=== PATIENT | female | born 1995 | race Hispanic/Latino ===

== ENCOUNTER 2016-10-23 13:47 | Emergency (ER) | payer OTHER ==
[~2016-10-23] VITALS: Ht 154.9 cm; Wt 77.0 kg
[~2016-10-23 13:47] MED LIST: AMOXICILLIN500 MG OR; AMOXICILLIN500 MG PO; CEPHALEXIN250 MG/5 M OR; NO HOME MEDS; ONDANSETRON4 MG PO; PHENERGAN25 MG/TAB PO; PRE-NATAL PO; PRENATABS RX PO; PROCARDIA10 MG PO; TRIMOX500 MG PO; ULTRAM50 M1 PO
[2016-10-23] MEDS ORDERED: MOTRIN400 MG PO (16:19)
[2016-10-23] MEDS ORDERED: FLEXERIL5 M1 PO (16:19)
[2016-10-23 16:26] VITALS: BP 110/67
== END 2016-10-23 16:26 | disposition home or self-care (01) | DRG 552 ==
LOC: ED 13:47
DX: M54.5 Low back pain (principal); W01.190A Fall on same level from slipping, tripping and stumbling with subsequent striking against furniture, initial encounter; Y92.009 Unspecified place in unspecified non-institutional (private) residence as the place of occurrence of the external cause

== ENCOUNTER 2017-03-22 07:43 | Emergency (ER) | payer OTHER ==
[~2017-03-22] VITALS: Ht 154.9 cm; Wt 75.0 kg
[~2017-03-22 07:43] MED LIST changes: +FLEXERIL5 M1 PO; +MOTRIN400 MG PO
[2017-03-22 08:38] LABS: IMMATURE GRANULOCYTES 0.5 % (0.0-1.0); MEAN CELL VOLUME 69.8 fL CALC (80.0-100.0); MEAN CORPUSCULAR HGB 21.1 pG CALC (26.0-32.0); MEAN CORPUSCULAR HGB CONC 30.3 g/L CALC (32.0-36.0); NEUT# 5.95 thou/uL (2.00-7.15); RED BLOOD COUNT 4.73 mill/uL (4.20-5.60); RED CELL DISTRI WIDTH 16.9 % (11.5-15.5)
[2017-03-22 08:42] LABS: URINE BILIRUBIN - DIPSTICK NEGATIVE (NEGATIVE); URINE BLOOD DIPSTICK LARGE (NEGATIVE); URINE COLOR YELLOW; URINE GLUCOSE - DIPSTICK NEGATIVE (NEGATIVE); URINE KETONE NEGATIVE (NEGATIVE); URINE LEUK ESTERASE NEGATIVE (NEGATIVE); URINE PH 6.5 (4.5-8.0); URINE PROTEIN - DIPSTICK NEGATIVE (NEG-TRACE); URINE UROBILINOGEN - DIPSTICK 0.2 E.U./dL (0.2)
[2017-03-22 08:46] LABS: URINE CLARITY CLEAR; URINE NITRITE - DIPSTICK NEGATIVE (Negative)
[2017-03-22 08:49] LABS: URINE RENAL EPITHELIAL CELLS RARE hpf; URINE WBC 0-2 WBC/hpf (0-5)
[2017-03-22 08:53] LABS: ALBUMIN 4.5 g/dL (3.2-5.0); ALKALINE PHOSPHATASE 143 u/l (38-126); AMYLASE 33 u/l (30-110); ANION GAP 19 (6-22 (CALC)); BILIRUBIN, TOTAL 0.2 mg/dL (0.0-1.4); BUN 11 mg/dL (7-17); BUN/CREATININE RATIO 15 (12-20 (CALC)); CARBON DIOXIDE 22 mmol/l (22-30); CHLORIDE 107 mmol/l (95-108); CREATININE 0.7 mg/dL (0.5-1.0); GFR > 60 ML/MIN (>=60 (CALC)); GFR FOR AFR.AMER. > 60 ML/MIN (>=60 (CALC)); LIPASE 55 u/l (23-300); POTASSIUM 4.2 mmol/l (3.5-5.1); SGOT/AST 19 u/l (14-36); SGPT/ALT 26 u/l (9-52); SODIUM 143 mmol/l (137-146); TOTAL PROTEIN 7.9 g/dL (6.3-8.2)
[2017-03-22] MEDS ORDERED: LORTAB 5/3255 MG PO (10:27)
[2017-03-22] MEDS ORDERED: ZOFRAN ODT4 MG PO (10:27)
[2017-03-22 10:58] VITALS: BP 128/60
== END 2017-03-22 10:58 | disposition home or self-care (01) | DRG 446 ==
LOC: ED 07:43
PROVIDERS: Emergency Medicine
DX: K80.70 Calculus of gallbladder and bile duct without cholecystitis without obstruction (principal); R10.11 Right upper quadrant pain; R10.13 Epigastric pain; R11.0 Nausea; R19.7 Diarrhea, unspecified

== ENCOUNTER 2017-06-14 09:29 | Emergency (ER) | payer OTHER ==
[~2017-06-14] VITALS: Ht 154.9 cm; Wt 68.2 kg
[~2017-06-14 09:29] MED LIST changes: +LORTAB 5/3255 MG PO; +ZOFRAN ODT4 MG PO
[2017-06-14 10:32] LABS: HEMATOCRIT 33.3 % (37.0-47.0); HEMOGLOBIN 9.9 g/dl (12.0-16.0); IMMATURE GRANULOCYTES 0.4 % (0.0-1.0); MEAN CELL VOLUME 69.5 fL CALC (80.0-100.0); MEAN CORPUSCULAR HGB 20.7 pG CALC (26.0-32.0); MEAN CORPUSCULAR HGB CONC 29.7 g/L CALC (32.0-36.0); RED BLOOD COUNT 4.79 mill/uL (4.20-5.60); RED CELL DISTRI WIDTH 16.9 % (11.5-15.5)
[2017-06-14 10:33] LABS: ALBUMIN 4.4 g/dL (3.2-5.0); ALKALINE PHOSPHATASE 115 u/l (38-126); ANION GAP 21 (6-22 (CALC)); BILIRUBIN, TOTAL 0.4 mg/dL (0.0-1.4); BUN 12 mg/dL (7-17); BUN/CREATININE RATIO 20 (12-20 (CALC)); CARBON DIOXIDE 22 mmol/l (22-30); CHLORIDE 102 mmol/l (95-108); CREATININE 0.6 mg/dL (0.5-1.0); GFR > 60 ML/MIN (>=60 (CALC)); GFR FOR AFR.AMER. > 60 ML/MIN (>=60 (CALC)); LIPASE 31 u/l (23-300); POTASSIUM 3.9 mmol/l (3.5-5.1); SGOT/AST 13 u/l (14-36); SGPT/ALT 28 u/l (9-52); SODIUM 141 mmol/l (137-146); TOTAL PROTEIN 8.1 g/dL (6.3-8.2)
[2017-06-14 10:38] LABS: URINE BILIRUBIN - DIPSTICK NEGATIVE (NEGATIVE); URINE BLOOD DIPSTICK NEGATIVE (NEGATIVE); URINE COLOR YELLOW; URINE GLUCOSE - DIPSTICK NEGATIVE (NEGATIVE); URINE KETONE NEGATIVE (NEGATIVE); URINE LEUK ESTERASE NEGATIVE (NEGATIVE); URINE NITRITE - DIPSTICK NEGATIVE (Negative); URINE PH 6.5 (4.5-8.0); URINE PROTEIN - DIPSTICK NEGATIVE (NEG-TRACE); URINE SPECIFIC GRAVITY 1.025; URINE UROBILINOGEN - DIPSTICK 0.2 E.U./dL (0.2)
[2017-06-14 10:40] LABS: URINE CLARITY CLEAR
[2017-06-14 11:14] LABS: BETA-HCG, QUANT(RESULT NUMBER) 37112 mIU/mL
[2017-06-14] MEDS ORDERED: PHENERGAN25 MG/TAB PO (13:24)
[2017-06-14 13:46] VITALS: BP 104/53
== END 2017-06-14 13:46 | disposition home or self-care (01) | DRG 781 ==
LOC: ED 09:29
PROVIDERS: Family Medicine
DX: O99.611 Diseases of the digestive system complicating pregnancy, first trimester (principal); K52.9 Noninfective gastroenteritis and colitis, unspecified; Z3A.01 Less than 8 weeks gestation of pregnancy; R11.2 Nausea with vomiting, unspecified

== ENCOUNTER 2017-08-01 06:48 | Emergency (ER) | payer OTHER ==
[~2017-08-01] VITALS: Ht 154.9 cm; Wt 60.0 kg
[2017-08-01 07:38] LABS: URINE BILIRUBIN - DIPSTICK NEGATIVE (NEGATIVE); URINE BLOOD DIPSTICK NEGATIVE (NEGATIVE); URINE COLOR YELLOW; URINE GLUCOSE - DIPSTICK NEGATIVE (NEGATIVE); URINE KETONE NEGATIVE (NEGATIVE); URINE NITRITE - DIPSTICK NEGATIVE (Negative); URINE PROTEIN - DIPSTICK NEGATIVE (NEG-TRACE); URINE SPECIFIC GRAVITY 1.025; URINE UROBILINOGEN - DIPSTICK 0.2 E.U./dL (0.2)
[2017-08-01 07:40] LABS: URINE CLARITY CLEAR; URINE LEUK ESTERASE SMALL (NEGATIVE)
[2017-08-01 07:42] LABS: HEMATOCRIT 29.9 % (37.0-47.0); HEMOGLOBIN 9.2 g/dl (12.0-16.0); IMMATURE GRANULOCYTES 0.3 % (0.0-1.0); MEAN CELL VOLUME 71.9 fL CALC (80.0-100.0); MEAN CORPUSCULAR HGB 22.1 pG CALC (26.0-32.0); MEAN CORPUSCULAR HGB CONC 30.8 g/L CALC (32.0-36.0); NEUT# 4.65 thou/uL (2.00-7.15); RED BLOOD COUNT 4.16 mill/uL (4.20-5.60); RED CELL DISTRI WIDTH 19.7 % (11.5-15.5)
[2017-08-01 07:47] LABS: URINE CALCIUM OXALATE CRYSTALS FEW lpf; URINE RBC 0-2 RBC/hpf (0-5); URINE SQUAMOUS EPITHELIAL CELL FEW EPI/hpf (0-FEW)
[2017-08-01 07:48] LABS: URINE BACTERIA FEW hpf; URINE MUCUS FEW hpf (NONE-FEW)
[2017-08-01 08:00] LABS: ALKALINE PHOSPHATASE 151 u/l (38-126); ANION GAP 14 (6-22 (CALC)); BILIRUBIN, TOTAL 0.4 mg/dL (0.0-1.4); BUN 4 mg/dL (7-17); BUN/CREATININE RATIO 10 (12-20 (CALC)); CARBON DIOXIDE 20 mmol/l (22-30); CHLORIDE 106 mmol/l (95-108); CREATININE 0.4 mg/dL (0.5-1.0); GFR > 60 ML/MIN (>=60 (CALC)); GFR FOR AFR.AMER. > 60 ML/MIN (>=60 (CALC)); LIPASE 38 u/l (23-300); POTASSIUM 3.8 mmol/l (3.5-5.1); SGPT/ALT 32 u/l (9-52); SODIUM 137 mmol/l (137-146); TOTAL PROTEIN 6.8 g/dL (6.3-8.2)
[2017-08-01 08:40] LABS: ALBUMIN 3.3 g/dL (3.2-5.0); SGOT/AST 23 u/l (14-36)
[2017-08-01] MEDS ORDERED: PHENERGAN25 M1 PO (10:36)
[2017-08-01] MEDS ORDERED: RANITIDINE150 M1 PO (10:36)
[2017-08-01 10:50] VITALS: BP 128/57
== END 2017-08-01 10:50 | disposition home or self-care (01) | DRG 781 ==
LOC: ED 06:48
PROVIDERS: Family Medicine
DX: O99.611 Diseases of the digestive system complicating pregnancy, first trimester (principal); K29.70 Gastritis, unspecified, without bleeding; Z3A.13 13 weeks gestation of pregnancy; R10.11 Right upper quadrant pain; R10.13 Epigastric pain

== ENCOUNTER 2018-01-15 12:50 | Emergency (ER) | payer OTHER ==
[~2018-01-15] VITALS: Ht 154.9 cm; Wt 64.1 kg
[~2018-01-15 12:50] MED LIST changes: +PHENERGAN25 M1 PO; +RANITIDINE150 M1 PO
[2018-01-15 13:47] LABS: HEMOGLOBIN 10.5 g/dl (12.0-16.0); IMMATURE GRANULOCYTES 0.7 % (0.0-5.0); MEAN CELL VOLUME 79.4 fL CALC (80.0-100.0); MEAN CORPUSCULAR HGB 24.5 pG CALC (26.0-32.0); MEAN CORPUSCULAR HGB CONC 30.9 g/L CALC (32.0-36.0); NEUT# 3.55 thou/uL (2.00-7.15); RED BLOOD COUNT 4.28 mill/uL (4.20-5.60); RED CELL DISTRI WIDTH 14.7 % (11.5-15.5)
[2018-01-15 14:01] LABS: ALBUMIN 3.8 g/dL (3.2-5.0); ALKALINE PHOSPHATASE 158 u/l (38-126); AMYLASE 49 u/l (30-110); ANION GAP 13 (6-22 (CALC)); BILIRUBIN, TOTAL 0.4 mg/dL (0.0-1.4); BUN 12 mg/dL (7-17); BUN/CREATININE RATIO 24 (12-20 (CALC)); CARBON DIOXIDE 25 mmol/l (22-30); CHLORIDE 108 mmol/l (95-108); CREATININE 0.5 mg/dL (0.5-1.0); GFR > 60 ML/MIN (>=60 (CALC)); GFR FOR AFR.AMER. > 60 ML/MIN (>=60 (CALC)); LIPASE 57 u/l (23-300); POTASSIUM 4.5 mmol/l (3.5-5.1); SGOT/AST 26 u/l (14-36); SODIUM 141 mmol/l (137-146); TOTAL PROTEIN 7.2 g/dL (6.3-8.2)
[2018-01-15] MEDS ORDERED: LORTAB 1010 MG PO (15:21)
[2018-01-15] MEDS ORDERED: ZOFRAN ODT4 MG PO (15:22)
[2018-01-15] MEDS ORDERED: PREVACID30 M3 PO (15:22)
[2018-01-15 15:35] VITALS: BP 110/53
== END 2018-01-15 15:35 | disposition home or self-care (01) ==
LOC: ED 12:50
PROVIDERS: Emergency Medicine
DX: O99.63 Diseases of the digestive system complicating the puerperium (principal); K80.20 Calculus of gallbladder without cholecystitis without obstruction; R10.11 Right upper quadrant pain
CPT/HCPCS: S0164

== ENCOUNTER 2018-08-26 10:07 | Emergency (ER) | payer SELFPAY ==
[~2018-08-26] VITALS: Ht 154.9 cm; Wt 64.2 kg
[~2018-08-26 10:07] MED LIST changes: +LORTAB 1010 MG PO; +PREVACID30 M3 PO
[2018-08-26 11:30] LABS: URINE BILIRUBIN - DIPSTICK SMALL (NEGATIVE); URINE BLOOD DIPSTICK NEGATIVE (NEGATIVE); URINE COLOR YELLOW; URINE GLUCOSE - DIPSTICK NEGATIVE (NEGATIVE); URINE KETONE 40 mg/dL (NEGATIVE); URINE LEUK ESTERASE TRACE (NEGATIVE); URINE NITRITE - DIPSTICK NEGATIVE (Negative); URINE PH 8.5 (4.5-8.0); URINE PROTEIN - DIPSTICK Trace mg/dL (NEG-TRACE)
[2018-08-26 11:36] LABS: HEMATOCRIT 36.9 % (37.0-47.0); HEMOGLOBIN 11.9 g/dl (12.0-16.0); IMMATURE GRANULOCYTES 0.4 % (0.0-5.0); MEAN CELL VOLUME 75.6 fL CALC (80.0-100.0); MEAN CORPUSCULAR HGB 24.4 pG CALC (26.0-32.0); MEAN CORPUSCULAR HGB CONC 32.2 g/L CALC (32.0-36.0); NEUT# 6.63 thou/uL (2.00-7.15); RED BLOOD COUNT 4.88 mill/uL (4.20-5.60); RED CELL DISTRI WIDTH 16.5 % (11.5-15.5)
[2018-08-26 11:56] LABS: ALBUMIN 4.7 g/dL (3.2-5.0); ALKALINE PHOSPHATASE 125 u/l (38-126); ANION GAP 20 (6-22 (CALC)); BILIRUBIN, TOTAL 0.5 mg/dL (0.0-1.4); BUN 9 mg/dL (7-17); BUN/CREATININE RATIO 18 (12-20 (CALC)); CARBON DIOXIDE 23 mmol/l (22-30); CHLORIDE 99 mmol/l (95-108); CREATININE 0.5 mg/dL (0.5-1.0); GFR > 60 ML/MIN (>=60 (CALC)); GFR FOR AFR.AMER. > 60 ML/MIN (>=60 (CALC)); LIPASE 33 u/l (23-300); POTASSIUM 3.8 mmol/l (3.5-5.1); SGOT/AST 31 u/l (14-36); SODIUM 139 mmol/l (137-146); TOTAL PROTEIN 8.1 g/dL (6.3-8.2)
[2018-08-26] MEDS ORDERED: REGLAN10 MG PO (12:55)
[2018-08-26] MEDS ORDERED: PRENATAL1 TA1 PO (12:55)
[2018-08-26 13:12] VITALS: BP 118/47
== END 2018-08-26 13:13 | disposition home or self-care (01) | DRG 833 ==
LOC: ED 10:07
DX: O21.9 Vomiting of pregnancy, unspecified (principal); Z3A.00 Weeks of gestation of pregnancy not specified

== ENCOUNTER 2018-11-16 12:22 | Emergency (ER) | payer SELFPAY ==
[~2018-11-16] VITALS: Ht 154.9 cm; Wt 70.0 kg
[~2018-11-16 12:22] MED LIST changes: +PRENATAL1 TA1 PO; +REGLAN10 MG PO
[2018-11-16] MEDS ORDERED: CVS IBUPROFEN200 M3 (12:59)
[2018-11-16 13:10] LABS: IMMATURE GRANULOCYTES 0.1 % (0.0-5.0); MEAN CORPUSCULAR HGB 26.7 pG CALC (26.0-32.0); NEUT# 5.86 thou/uL (2.00-7.15); RED BLOOD COUNT 3.6 mill/uL (4.20-5.60); RED CELL DISTRI WIDTH 15.2 % (11.5-15.5)
[2018-11-16 13:12] LABS: HEMOGLOBIN 9.6 g/dl (12.0-16.0)
[2018-11-16 13:13] LABS: HEMATOCRIT 29.1 % (37.0-47.0); MEAN CELL VOLUME 80.8 fL CALC (80.0-100.0)
[2018-11-16 13:21] LABS: ALKALINE PHOSPHATASE 116 u/l (38-126); ANION GAP 13 (6-22 (CALC)); BILIRUBIN, TOTAL 0.3 mg/dL (0.0-1.4); BUN 9 mg/dL (7-17); BUN/CREATININE RATIO 18 (12-20 (CALC)); CARBON DIOXIDE 23 mmol/l (22-30); CHLORIDE 105 mmol/l (95-108); CREATININE 0.5 mg/dL (0.5-1.0); GFR > 60 ML/MIN (>=60 (CALC)); GFR FOR AFR.AMER. > 60 ML/MIN (>=60 (CALC)); POTASSIUM 3.9 mmol/l (3.5-5.1); SGOT/AST 18 u/l (14-36); SODIUM 136 mmol/l (137-146); TOTAL PROTEIN 6.8 g/dL (6.3-8.2)
[2018-11-16 13:31] LABS: ALBUMIN 3.5 g/dL (3.2-5.0)
[2018-11-16 13:33] LABS: MYOGLOBIN 15 ng/mL (0 - 62)
[2018-11-16 14:35] VITALS: BP 111/53
== END 2018-11-16 14:34 | disposition home or self-care (01) ==
LOC: ED 12:22
PROVIDERS: Family Medicine
DX: O26.892 Other specified pregnancy related conditions, second trimester (principal); R07.89 Other chest pain; Z3A.22 22 weeks gestation of pregnancy

== ENCOUNTER 2019-05-04 | Emergency (ER) | payer OTHER ==
[~2019-05-04] MED LIST changes: +CVS IBUPROFEN200 M3
[2019-05-04] MEDS ORDERED: PAXIL30 MG PO (01:49)
[2019-05-04 02:13] LABS: HEMATOCRIT 33.9 % (37.0-47.0); HEMOGLOBIN 10.1 g/dl (12.0-16.0); IMMATURE GRANULOCYTES 0.1 % (0.0-5.0); MEAN CORPUSCULAR HGB CONC 29.8 g/dL CAL (32.0-36.0); NEUT# 4.59 thou/uL (2.00-7.15); RED BLOOD COUNT 4.6 mill/uL (4.20-5.60); RED CELL DISTRI WIDTH 15.3 % (11.5-15.5)
[2019-05-04 02:16] LABS: URINE BILIRUBIN - DIPSTICK NEGATIVE (NEGATIVE); URINE BLOOD DIPSTICK NEGATIVE (NEGATIVE); URINE COLOR YELLOW; URINE GLUCOSE - DIPSTICK NEGATIVE (NEGATIVE); URINE KETONE NEGATIVE (NEGATIVE); URINE LEUK ESTERASE NEGATIVE (NEGATIVE); URINE NITRITE - DIPSTICK NEGATIVE (Negative); URINE PH 6.5 (4.5-8.0); URINE PROTEIN - DIPSTICK NEGATIVE (NEG-TRACE); URINE SPECIFIC GRAVITY 1.025; URINE UROBILINOGEN - DIPSTICK 0.2 E.U./dL (0.2)
[2019-05-04 02:17] LABS: MEAN CELL VOLUME 73.7 fL CALC (80.0-100.0)
[2019-05-04 02:30] LABS: ALBUMIN 4.2 g/dL (3.2-5.0); ALKALINE PHOSPHATASE 109 u/l (38-126); ANION GAP 14 (6-22 (CALC)); BILIRUBIN, TOTAL 0.2 mg/dL (0.0-1.4); BUN 19 mg/dL (7-17); BUN/CREATININE RATIO 29 (12-20 (CALC)); CARBON DIOXIDE 23 mmol/l (22-30); CHLORIDE 105 mmol/l (95-108); CREATININE 0.6 mg/dL (0.5-1.0); GFR > 60 ML/MIN (>=60 (CALC)); GFR FOR AFR.AMER. > 60 ML/MIN (>=60 (CALC)); LIPASE 63 u/l (23-300); POTASSIUM 3.7 mmol/l (3.5-5.1); SGOT/AST 18 u/l (14-36); SODIUM 139 mmol/l (137-146); TOTAL PROTEIN 8.1 g/dL (6.3-8.2)
[2019-05-04] MEDS ORDERED: ONDANSETRON4 MG PO (02:41)
[2019-05-04] MEDS ORDERED: PROTONIX40 M2 PO (02:41)
== END 2019-05-04 03:20 | disposition home or self-care (01) ==
DX: R10.13 Epigastric pain (principal); K80.20 Calculus of gallbladder without cholecystitis without obstruction; F17.200 Nicotine dependence, unspecified, uncomplicated
CPT/HCPCS: S0164

== ENCOUNTER 2019-12-03 12:40 | Emergency (ER) | payer OTHER ==
[~2019-12-03] VITALS: Ht 154.9 cm; Wt 80.0 kg
[~2019-12-03 12:40] MED LIST changes: +PAXIL30 MG PO; +PROTONIX40 M2 PO
[2019-12-03] MEDS ORDERED: FERR SULFATE325 MG PO (12:54)
[2019-12-03] MEDS ORDERED: TRILEPTAL150 M1 PO (12:54)
[2019-12-03] MEDS ORDERED: CLONAZEP ODT0.5 MG PO (12:56)
[2019-12-03 14:55] VITALS: BP 111/51
== END 2019-12-03 15:12 | disposition home or self-care (01) ==
LOC: ED 12:40
DX: S92.352A Displaced fracture of fifth metatarsal bone, left foot, initial encounter for closed fracture (principal); F17.210 Nicotine dependence, cigarettes, uncomplicated; X50.0XXA Overexertion from strenuous movement or load, initial encounter; Y93.89 Activity, other specified; Y92.009 Unspecified place in unspecified non-institutional (private) residence as the place of occurrence of the external cause

== ENCOUNTER 2020-05-30 21:32 | Emergency (ER) | payer OTHER ==
[~2020-05-30 21:32] MED LIST changes: +CLONAZEP ODT0.5 MG PO; +FERR SULFATE325 MG PO; +TRILEPTAL150 M1 PO
[2020-05-30 23:00] LABS: HEMOGLOBIN 11.1 g/dl (12.0-16.0); IMMATURE GRANULOCYTES 0.5 % (0.0-5.0); MEAN CELL VOLUME 74.7 fL CALC (80.0-100.0); MEAN CORPUSCULAR HGB 22.4 pG CALC (26.0-32.0); RED BLOOD COUNT 4.95 mill/uL (4.20-5.60); RED CELL DISTRI WIDTH 18.3 % (11.5-15.5)
[2020-05-30 23:18] LABS: ANION GAP 12 (6-22 (CALC)); BUN 10 mg/dL (7-17); BUN/CREATININE RATIO 15 (12-20 (CALC)); CARBON DIOXIDE 23 mmol/l (22-30); CHLORIDE 107 mmol/l (95-108); CREATININE 0.7 mg/dL (0.5-1.0); GFR > 60 ML/MIN (>=60 (CALC)); GFR FOR AFR.AMER. > 60 ML/MIN (>=60 (CALC)); POTASSIUM 3.3 mmol/l (3.5-5.1); SODIUM 140 mmol/l (137-146)
[2020-05-30 23:51] LABS: URINE BLOOD DIPSTICK TRACE-INTACT (NEGATIVE); URINE CLARITY SL CLOUDY; URINE COLOR YELLOW; URINE GLUCOSE - DIPSTICK NEGATIVE (NEGATIVE); URINE KETONE 40 mg/dL (NEGATIVE); URINE LEUK ESTERASE TRACE (Negative); URINE PROTEIN - DIPSTICK 30 mg/dL (NEG-TRACE); URINE SPECIFIC GRAVITY >=1.030; URINE UROBILINOGEN - DIPSTICK 0.2 E.U./dL (0.2)
[2020-05-30 23:52] LABS: URINE BILIRUBIN - DIPSTICK SMALL (NEGATIVE); URINE NITRITE - DIPSTICK NEGATIVE (Negative)
[2020-05-30 23:57] LABS: URINE BACTERIA MODERATE hpf; URINE EPITHELIAL CELLS MODERATE EPI/hpf (0-FEW); URINE MUCUS MANY hpf (NONE-FEW)
[2020-05-31 03:00] VITALS: BP 138/63
== END 2020-05-31 03:01 | DRG 313 ==
LOC: ED 21:32
PROVIDERS: Emergency Medicine
DX: R07.9 Chest pain, unspecified (principal); R93.89 Abnormal findings on diagnostic imaging of other specified body structures; S30.810A Abrasion of lower back and pelvis, initial encounter; F17.200 Nicotine dependence, unspecified, uncomplicated; V49.40XA Driver injured in collision with unspecified motor vehicles in traffic accident, initial encounter
CPT/HCPCS: Q9967

== ENCOUNTER 2020-10-14 11:23 | Emergency (ER) | payer OTHER ==
[~2020-10-14] VITALS: Ht 154.9 cm; Wt 77.0 kg
[2020-10-14] MEDS ORDERED: PENICILLN VK500 MG PO (14:11)
[2020-10-14 14:45] VITALS: BP 112/70
== END 2020-10-14 14:45 | disposition home or self-care (01) ==
LOC: ED 11:23
DX: K04.7 Periapical abscess without sinus (principal); K02.9 Dental caries, unspecified; M84.68XA Pathological fracture in other disease, other site, initial encounter for fracture; F17.200 Nicotine dependence, unspecified, uncomplicated

== ENCOUNTER 2020-12-19 21:34 | Emergency (ER) | payer OTHER ==
[~2020-12-19] VITALS: Ht 154.9 cm; Wt 67.0 kg
[~2020-12-19 21:34] MED LIST changes: +PENICILLN VK500 MG PO
[2020-12-19] MEDS ORDERED: ATIVAN1 MG PO (22:04)
[2020-12-19 22:17] LABS: HEMATOCRIT 41.4 % (37.0-47.0); HEMOGLOBIN 12.2 g/dl (12.0-16.0); IMMATURE GRANULOCYTES 0.2 % (0.0-5.0); MEAN CORPUSCULAR HGB 27.2 pG CALC (26.0-32.0); MEAN CORPUSCULAR HGB CONC 29.5 g/dL CAL (32.0-36.0); NEUT# 5.57 thou/uL (2.00-7.15); RED BLOOD COUNT 4.49 mill/uL (4.20-5.60); RED CELL DISTRI WIDTH 14.3 % (11.5-15.5)
[2020-12-19 22:19] LABS: URINE BILIRUBIN - DIPSTICK NEGATIVE (NEGATIVE); URINE BLOOD DIPSTICK NEGATIVE (NEGATIVE); URINE COLOR YELLOW; URINE GLUCOSE - DIPSTICK NEGATIVE (NEGATIVE); URINE KETONE NEGATIVE (NEGATIVE); URINE LEUK ESTERASE NEGATIVE (NEGATIVE); URINE PROTEIN - DIPSTICK NEGATIVE (NEG-TRACE); URINE SPECIFIC GRAVITY >=1.030; URINE UROBILINOGEN - DIPSTICK 0.2 E.U./dL (0.2)
[2020-12-19 22:19] LABS: MEAN CELL VOLUME 92.2 fL CALC (80.0-100.0)
[2020-12-19 22:20] LABS: URINE NITRITE - DIPSTICK NEGATIVE (Negative)
[2020-12-19 22:36] LABS: ACT PARTIAL THROMBO TIME 26.3 SECONDS (20.0-32.5); PROTHROMBIN TIME 10.5 SECONDS (9.0-12.5)
[2020-12-19 22:42] LABS: ALBUMIN 4.5 g/dL (3.2-5.0); ALKALINE PHOSPHATASE 91 u/l (38-126); BUN 14 mg/dL (7-17); BUN/CREATININE RATIO 20 (12-20 (CALC)); CARBON DIOXIDE 23 mmol/l (22-30); CHLORIDE 107 mmol/l (95-108); CREATININE 0.7 mg/dL (0.5-1.0); GFR > 60 ML/MIN (>=60 (CALC)); GFR FOR AFR.AMER. > 60 ML/MIN (>=60 (CALC)); MAGNESIUM 1.8 mg/dL (1.6-2.3); SGOT/AST 25 u/l (14-36); SODIUM 141 mmol/l (137-146); TOTAL PROTEIN 7.8 g/dL (6.3-8.2)
[2020-12-19 22:44] LABS: ANION GAP 15 (6-22 (CALC)); BILIRUBIN, TOTAL 0.5 mg/dL (0.0-1.4); POTASSIUM 4.2 mmol/l (3.5-5.1)
[2020-12-19 23:13] LABS: TSH, 3RD GENERATION 0.74 uIU/mL (0.47 - 4.68)
[2020-12-19 23:27] VITALS: BP 128/59
== END 2020-12-19 23:40 | disposition home or self-care (01) ==
LOC: ED 21:34
PROVIDERS: Family Medicine
DX: N93.9 Abnormal uterine and vaginal bleeding, unspecified (principal); G40.909 Epilepsy, unspecified, not intractable, without status epilepticus; F17.200 Nicotine dependence, unspecified, uncomplicated; Z97.5 Presence of (intrauterine) contraceptive device

== ENCOUNTER 2021-02-26 14:02 | Emergency (ER) | payer OTHER ==
[~2021-02-26] VITALS: Ht 154.9 cm; Wt 68.0 kg
[~2021-02-26 14:02] MED LIST changes: +ATIVAN1 MG PO
[2021-02-26 15:35] LABS: HEMATOCRIT 37.3 % (37.0-47.0); HEMOGLOBIN 11.9 g/dl (12.0-16.0); IMMATURE GRANULOCYTES 0.2 % (0.0-5.0); MEAN CORPUSCULAR HGB CONC 31.9 g/dL CAL (32.0-36.0); NEUT# 8.38 thou/uL (2.00-7.15); RED BLOOD COUNT 4.4 mill/uL (4.20-5.60); RED CELL DISTRI WIDTH 13.5 % (11.5-15.5)
[2021-02-26 15:39] LABS: MEAN CELL VOLUME 84.8 fL CALC (80.0-100.0)
[2021-02-26 15:54] LABS: ALBUMIN 4.1 g/dL (3.2-5.0); ALKALINE PHOSPHATASE 85 u/l (38-126); ANION GAP 13 (6-22 (CALC)); BILIRUBIN, TOTAL 0.6 mg/dL (0.0-1.4); BUN 10 mg/dL (7-17); BUN/CREATININE RATIO 16 (12-20 (CALC)); CARBON DIOXIDE 22 mmol/l (22-30); CHLORIDE 108 mmol/l (95-108); CREATININE 0.7 mg/dL (0.5-1.0); GFR > 60 ML/MIN (>=60 (CALC)); GFR FOR AFR.AMER. > 60 ML/MIN (>=60 (CALC)); POTASSIUM 3.7 mmol/l (3.5-5.1); SGOT/AST 19 u/l (14-36); SODIUM 140 mmol/l (137-146); TOTAL PROTEIN 7.5 g/dL (6.3-8.2)
[2021-02-26 16:27] LABS: URINE BLOOD DIPSTICK TRACE-LYSED (NEGATIVE); URINE COLOR YELLOW; URINE GLUCOSE - DIPSTICK NEGATIVE (NEGATIVE); URINE KETONE 40 mg/dL (NEGATIVE); URINE PROTEIN - DIPSTICK NEGATIVE (NEG-TRACE); URINE SPECIFIC GRAVITY >=1.030; URINE UROBILINOGEN - DIPSTICK 0.2 E.U./dL (0.2)
[2021-02-26 16:28] LABS: AMYLASE 43 u/l (30-110); LIPASE 24 u/l (23-300)
[2021-02-26 16:30] LABS: URINE BILIRUBIN - DIPSTICK NEGATIVE (NEGATIVE); URINE LEUK ESTERASE SMALL (NEGATIVE); URINE NITRITE - DIPSTICK NEGATIVE (Negative)
[2021-02-26 16:40] LABS: URINE SQUAMOUS EPITHELIAL CELL FEW EPI/hpf (0-FEW)
[2021-02-26] MEDS ORDERED: KEFLEX500 MG PO (17:53)
[2021-02-26 19:16] VITALS: BP 90/47
== END 2021-02-26 19:29 | disposition home or self-care (01) ==
LOC: ED 14:02
PROVIDERS: Emergency Medicine
DX: N39.0 Urinary tract infection, site not specified (principal); N83.201 Unspecified ovarian cyst, right side; F31.9 Bipolar disorder, unspecified; F17.200 Nicotine dependence, unspecified, uncomplicated; Z20.822 Contact with and (suspected) exposure to COVID-19
CPT/HCPCS: Q9967

== ENCOUNTER 2022-02-11 20:06 | Emergency (ER) | payer OTHER ==
[~2022-02-11] VITALS: Ht 154.9 cm; Wt 65.9 kg
[~2022-02-11 20:06] MED LIST changes: +KEFLEX500 MG PO
[2022-02-11] MEDS ORDERED: VOLTAREN75 MG PO (20:19)
[2022-02-11] MEDS ORDERED: AMOXICILLIN500 MG PO (20:19)
[2022-02-11 20:37] VITALS: BP 137/61
== END 2022-02-11 20:39 | disposition home or self-care (01) ==
LOC: ED 20:06
DX: K02.9 Dental caries, unspecified (principal); K04.7 Periapical abscess without sinus; F31.9 Bipolar disorder, unspecified; F41.9 Anxiety disorder, unspecified; F17.200 Nicotine dependence, unspecified, uncomplicated

== ENCOUNTER 2022-10-01 14:51 | Emergency (ER) | payer OTHER ==
[~2022-10-01] VITALS: Ht 154.9 cm; Wt 79.4 kg
[2022-10-01] VITALS (11 sets, daily range): BP systolic 101–132; BP diastolic 42–67
[~2022-10-01 14:51] MED LIST changes: +VOLTAREN75 MG PO
[2022-10-01 15:29] LABS: URINE BILIRUBIN - DIPSTICK Negative (NEGATIVE); URINE BLOOD DIPSTICK Negative (NEGATIVE); URINE GLUCOSE - DIPSTICK Negative (NEGATIVE); URINE KETONE Negative (NEGATIVE); URINE LEUK ESTERASE Negative (NEGATIVE); URINE NITRITE - DIPSTICK Negative (Negative); URINE PROTEIN - DIPSTICK Negative (NEG-TRACE); URINE SPECIFIC GRAVITY >=1.030; URINE UROBILINOGEN - DIPSTICK 0.2 E.U./dL (0.2)
[2022-10-01 15:32] LABS: URINE COLOR Yellow
[2022-10-01] MEDS ORDERED: METHOCARBAMOL500 MG PO (17:24)
[2022-10-01] MEDS ORDERED: NAPROXEN500 MG PO (17:24)
[2022-10-01] MEDS ORDERED: MEDDOSEPAK PO (17:24)
== END 2022-10-01 17:39 | disposition home or self-care (01) ==
LOC: ED 14:51
PROVIDERS: Nurse Practitioner
DX: M54.6 Pain in thoracic spine (principal); M54.50 Low back pain, unspecified; F41.9 Anxiety disorder, unspecified; F31.9 Bipolar disorder, unspecified; F17.200 Nicotine dependence, unspecified, uncomplicated

== ENCOUNTER 2023-11-21 16:44 | Emergency (ER) | payer OTHER ==
[~2023-11-21] VITALS: Ht 154.9 cm; Wt 78.0 kg
[~2023-11-21 16:44] MED LIST changes: +LAMICTAL100 M1 PO; +MACROBID100 M1 PO; +MEDDOSEPAK PO; +METHOCARBAMOL500 MG PO; +NAPROXEN500 MG PO; +XANAX0.5 MG PO
[2023-11-21 16:50] VITALS: BP 139/67
[2023-11-21 17:01] VITALS: BP 144/51
[2023-11-21] MEDS ORDERED: LACTATED RINGER'S 1,000 ML IV ONE (17:05)
[2023-11-21 17:16] VITALS: BP 116/57
[2023-11-21 17:30] VITALS: BP 130/59
[2023-11-21 17:32] LABS: BASO% 0.1 % (0-3); EOS% 0.9 % (0-8); HEMATOCRIT 36.8 % (37.0-47.0); HEMOGLOBIN 12.2 g/dl (12.0-16.0); IMMATURE GRANULOCYTES 0.2 % (0.0-5.0); LYMPH% 16.5 % (15-41); MEAN CELL VOLUME 90.6 fL CALC (80.0-100.0); MEAN CORPUSCULAR HGB CONC 33.2 g/dL CAL (32.0-36.0); MONO% 5.9 % (2-13); NEUT# 6.45 thou/uL (2.00-7.15); NEUT% 76.4 % (42-76); RED BLOOD COUNT 4.06 mill/uL (4.20-5.60); RED CELL DISTRI WIDTH 13.3 % (11.5-15.5)
[2023-11-21 17:45] LABS: ALBUMIN 4.3 g/dL (3.2-5.0); BILIRUBIN, TOTAL 0.4 mg/dL (0.02-1.3); CREATININE 0.6 mg/dL (0.5-1.0); POTASSIUM 3.6 mmol/l (3.5-5.1); TOTAL PROTEIN 7.7 g/dL (6.3-8.2)
[2023-11-21 17:46] VITALS: BP 120/61
[2023-11-21 18:05] VITALS: BP 120/61
== END 2023-11-21 18:10 | disposition short-term general hospital (02) ==
LOC: ED 16:44
PROVIDERS: Family Medicine
DX: O60.02 Preterm labor without delivery, second trimester (principal); O99.332 Smoking (tobacco) complicating pregnancy, second trimester; F17.200 Nicotine dependence, unspecified, uncomplicated; O09.892 Supervision of other high risk pregnancies, second trimester; Z3A.22 22 weeks gestation of pregnancy; Z86.718 Personal history of other venous thrombosis and embolism